=== PATIENT | male | born 1970 | race Caucasian/White ===

== ENCOUNTER 2022-03-05 13:44 | Outpatient (CLI) | payer BC, SELFPAY ==
--- OUTSIDE RECORDS SUMMARY | 2022-03-05 08:14 | XMS_ITS | Encounter Summary ---
:1970 Author Organization [facility] Address [address] [place] [id number] Care Team Providers Name Role Phone Unavailable Primary Care Provider Unavailable Encounter Details Date Type Department Care Team Description 07/19/2020 Documentation Only INTERFACED REPORT Unknown, Provider Social History Tobacco Use Types Packs/Day Years Used Date Smoking Tobacco: Never Assessed Sex Assigned at Date Recorded Not on file documented as of this encounter Plan of Treatment Not on filedocumented as of this encounter Visit Diagnoses Not on filedocumented in this encounter
--- OUTSIDE RECORDS SUMMARY | 2022-03-05 08:14 | XMS_ITS | Encounter Summary ---
:1970 Author Organization [facility] Address [address] [place] [id number] Care Team Providers Name Role Phone Unavailable Primary Care Provider Unavailable Encounter Details Date Type Department Care Team Description [facility]20[facility] [address] [place] [address] Social History Tobacco Use Types Packs/Day Years Used Date Smoking Tobacco: Never Assessed Sex Assigned at Date Recorded Not on file documented as of this encounter Plan of Treatment Not on filedocumented as of this encounter Visit Diagnoses Not on filedocumented in this encounter
--- OUTSIDE RECORDS SUMMARY | 2022-03-05 08:14 | XMS_ITS | Encounter Summary ---
:1970 Author Organization [facility] Address [address] [place] [id number] Care Team Providers Name Role Phone Unavailable Primary Care Provider Unavailable Encounter Details Date Type Department Care Team Description 07/18/2020 Immunization [facility] [address] Vaccination MD [address] [address] [place] [address] [phone] Social History Tobacco Use Types Packs/Day Years Used Date Smoking Tobacco: Never Assessed Sex Assigned at Date Recorded Not on file documented as of this encounter Plan of Treatment Not on filedocumented as of this encounter Visit Diagnoses Not on filedocumented in this encounter
[2022-03-05 14:40] LABS: Albumin* 4.6 g/dL (3.3-5.0)
[2022-03-05 14:41] LABS: Chloride* 102 mmol/L (96-114); Potassium* 4.7 mmol/L (3.6-5.1); Sodium* 138 mmol/L (135-149)
[2022-03-05 14:43] LABS: Carbon Dioxide* 27 mmol/L (20-32); Cholesterol* 146 mg/dL (90-199); Estimated Glomerular Filt Rate 89 ml/min
[2022-03-05 14:44] LABS: Alanine Aminotransferase* 24 U/L (4-50); Alkaline Phosphatase* 57 U/L (40-150); Aspartate Amino Transferase* 24 U/L (12-35); Bilirubin Total* 1.3 mg/dL (0.1-1.5); Blood Urea Nitrogen* 14 mg/dL (7-30); Calcium* 9.7 mg/dL (8.4-10.6); Glucose* 83 mg/dL (60-115); HDL Cholesterol* 46 mg/dL (>=40); LDL Cholesterol Calculated 85 mg/dL (<100); Total Protein* 7.1 g/dL (6.0-8.3); Triglycerides* 76 mg/dL (40-149)
[2022-03-07 15:19] LABS: PSA Screen* 0.38 ng/mL (0.10-4.00)
== END 2022-03-05 13:45 | disposition home or self-care (01) ==
PROVIDERS: PCP Family Medicine; Visit Provider Physician Assistant Medical
DX: Z00.00 Encounter for general adult medical examination without abnormal findings (principal); Z13.6 Encounter for screening for cardiovascular disorders; Z12.5 Encounter for screening for malignant neoplasm of prostate
CPT/HCPCS: 80053; 80061; 84153

== ENCOUNTER 2023-03-11 10:27 | Outpatient (CLI) | payer OTHER, SELFPAY | END 2023-03-11 10:28 | disposition home or self-care (01) | PROVIDERS: PCP Family Medicine; Visit Provider Physician Assistant Medical | DX: Z12.5 Encounter for screening for malignant neoplasm of prostate (principal); Z13.9 Encounter for screening, unspecified; Z13.220 Encounter for screening for lipoid disorders | CPT/HCPCS: 80061; 84153; 86703; 86803 ==

== ENCOUNTER 2023-04-25 06:43 | Day surgery (SDC) | payer OTHER, SELFPAY ==
[2023-04-25] VITALS (12 sets, daily range): BP systolic 120–138; BP diastolic 69–84; PULSE 68–78; RESP 12–16; TEMP 36.1–36.7; O2SAT 93–100; BMI 25.4
[2023-04-25] MEDS: LACTATED RINGERS 1000 ML 1,000 ML 100 ML IV (07:10)
[2023-04-25] MEDS: SODIUM CHLORIDE 0.9 % (FLUSH) 10 ML SYRINGE IVF (07:10)
[2023-04-25] MEDS: CEFAZOLIN 1 GM inj IVP (08:11)
[2023-04-25] MEDS: BUPIVACAINE 0.25% 30 ML 20 ML INJECTION (08:28)
--- NOTE | 2023-04-25 09:18 | W.ANESCHARGE ---
Anesthesia Charges Start Date/Time Anesthesia Start Date: 04/25/23 Anesthesia Start Time: 08:03 Stop Date/Time Anesthesia Stop Date: 04/25/23 Anesthesia Stop Time: 09:19
--- NOTE | 2023-04-25 09:20 | W.ANESCHARGE ---
Anesthesia Charges Start Date/Time Anesthesia Start Date: 04/25/23 Anesthesia Start Time: 08:03 Stop Date/Time Anesthesia Stop Date: 04/25/23 Anesthesia Stop Time: 09:19
--- NOTE | 2023-04-25 09:42 | P.GSOP_ITS ---
Operative Note Date of procedure: 04/25/23 Pre-op diagnosis: Umbilical hernia Post-op diagnosis: Same Type of Procedure: Repair 2 cm umbilical hernia with mesh Indications: Robert is a 53-year-old male who presented to clinic with an umbilical hernia which have been present for approximately 2 years. After discussion of options, he elected to have this repaired. Procedure Description: After discussing the risks and benefits of the procedure, the patient signed informed consent.? The operative site was marked and the patient was brought to the operating room and placed on the operating table in supine position.? Care was taken to pad the patient's pressure points.?? The patient was then intubated by anesthesia.?? The operative site was then prepped and draped in the usual sterile fashion.? A time-out was then performed. Local anesthetic was injected into the fascia, skin and subcutaneous tissues. A curvilinear incision was made just below the umbilicus. Dissection was carried down into the subcutaneous tissue using cautery. The hernia sac was encountered. This was entered and contained preperitoneal fat. This was reduced. The umbilical stalk skin was dissected from the hernia sac. There were actually 2 defects. There was a very small <5 mm defect just superior to the larger defect. The larger defect measured 2 cm. Because of this, the decision was made to use mesh. A preperitoneal pocket was created using a combination of blunt dissection and cautery. Hemostasis appeared adequate. Once the posterior fascia was clear, a piece of medium Ventralex ST hernia mesh was placed in the preperitoneal space with care to ensure that it laid flat. This was secured int o place using 2 0 PDS interrupted sutures. The tails were then trimmed and the fascial openings were closed with a running 0 Vicryl. The umbilicus was reapproximated to the fascia. The skin was then closed with running absorbable suture. A sterile dressing was then applied. ? The patient was then woken and transported to the recovery area in stable condition. ? The patient tolerated the procedure well. Findings: 2 cm umbilical hernia containing preperitoneal fat. Smaller <5 mm defect just superior to this, also containing preperitoneal fat Anesthesia: MONO Surgeon: Lisa Fall MD Estimated blood loss (mL): 5 Condition: stable Disposition: PACU
--- NOTE | 2023-04-25 09:52 | SUR.PHASEI ---
patient met discharge criteria per anesthesia
== END 2023-04-25 10:50 | disposition home or self-care (01) ==
PROVIDERS: PCP Family Medicine; Visit Provider Surgery
PROC: (CPT 49591; principal; 2023-04-25 08:00)
DX: K42.9 Umbilical hernia without obstruction or gangrene (principal)
CPT/HCPCS: 49591; 00830; C1781; J0330; J0665; J0690; J1100; J1885; J2250; J2405; J2704; J3010; J7120

== ENCOUNTER 2025-01-21 13:10 | Outpatient (CLI) | payer OTHER, SELFPAY | END 2025-01-21 13:11 | disposition home or self-care (01) | PROVIDERS: PCP Family Medicine; Visit Provider Family Medicine | DX: Z00.00 Encounter for general adult medical examination without abnormal findings (principal) | CPT/HCPCS: 80053; 80061; G0103 ==